=== PATIENT | female | born 1985 | race Caucasian/White ===

== ENCOUNTER 2017-05-21 13:13 | Emergency (ER) | payer OTHER ==
[2017-05-21] MEDS ORDERED: NORMAL SALINE 1000 ML 1,000 ML IV ONE (13:50)
[2017-05-21] MEDS ORDERED: ONDANSETRON 4 MG TAB.RAPDIS PO ONE (13:50)
--- NOTE | 2017-05-21 13:52 | ER Document Report ---
ED Medical Screen (RME) - General Chief Complaint: Nausea/Vomiting/Diarrhea Stated Complaint: FLU LIKE SYMPTOMS Time Seen by Provider: 05/21/17 13:47 Notes: 31-year-old female patient is about 18 weeks . Came here from [place] 5 days ago. This morning developed sinus congestion with sore throat, shortly after that developed nausea vomiting diarrhea with left abdomen cramping. She states she hurts everywhere including her teeth to her toes. I have greeted and performed a rapid initial assessment of this patient. A comprehensive ED assessment and evaluation of the patient, analysis of test results and completion of the medical decision making process will be conducted by additional ED providers. - Related Data Allergies/Adverse Reactions: No Known Allergies Allergy (Verified 05/21/17 13:43) Past Medical History - Social History Chew tobacco use (# tins/day): No Frequency of alcohol use: None Drug Abuse: None Renal/ Medical History: Denies: Hx Peritoneal Dialysis Physical Exam - Vital signs Vitals: Temp Pulse Resp BP Pulse Ox 97.2 F 82 22 H 127/76 H 99 05/21/17 13:26 05/21/17 13:26 05/21/17 13:26 05/21/17 13:26 05/21/17 13:26 Course - Vital Signs Vital signs: Temp Pulse Resp BP Pulse Ox 97.2 F 82 22 H 127/76 H 99 05/21/17 13:26 05/21/17 13:26 05/21/17 13:26 05/21/17 13:26 05/21/17 13:26
[2017-05-21] MEDS ORDERED: METOCLOPRAMIDE HCL INJ/PF 10 MG/2 ML SDV IV ONE (14:21)
[2017-05-21 14:36] LABS: HEMATOCRIT 40.2 % (36.0-47.0); HEMOGLOBIN 14.1 g/dL (12.0-15.5); MEAN CORPUSCULAR HEMOGLOBIN 31.2 pg (27.0-33.4); MEAN CORPUSCULAR VOLUME 89 fl (80-97); PLATELET COUNT 212 10^3/uL (150-450); RED BLOOD COUNT 4.51 10^6/uL (3.72-5.28); RED CELL DISTRIBUTION WIDTH 13.2 % (11.5-14.0); WHITE BLOOD COUNT 12.5 10^3/uL (4.0-10.5)
[2017-05-21 14:40] LABS: ABSOLUTE LYMPHOCYTES# (MANUAL) 0.8 10^3/uL (0.5-4.7); ABSOLUTE MONOCYTES # (MANUAL) 0.3 10^3/uL (0.1-1.4); ABSOLUTE NEUTROPHILS# (MANUAL) 11.5 10^3/uL (1.7-8.2); BASOPHILS % (MANUAL) 0 % (0-2); EOSINOPHILS % (MANUAL) 0 % (0-6); LYMPHOCYTES % (MANUAL) 4 % (13-45); MONOCYTES % (MANUAL) 2 % (3-13); SEGMENTED NEUTROPHILS % (MAN) 92 % (42-78); TOTAL CELLS COUNTED 100
[2017-05-21 14:41] LABS: POLYCHROMASIA SLIGHT
[2017-05-21 14:42] LABS: PLATELET COMMENT ADEQUATE
[2017-05-21 14:46] LABS: ALANINE AMINOTRANSFERASE 26 U/L (9-52); ALKALINE PHOSPHATASE 56 U/L (38-126); ANION GAP 8 (5-19); ASPARTATE AMINO TRANSFERASE 19 U/L (14-36); BILIRUBIN,DIRECT 0.2 mg/dL (0.0-0.4); BILIRUBIN,TOTAL 0.8 mg/dL (0.2-1.3); BLOOD UREA NITROGEN 9 mg/dL (7-20); CALCIUM 9.6 mg/dL (8.4-10.2); CARBON DIOXIDE 24 mmol/L (22-30); CHLORIDE 104 mmol/L (98-107); GLUCOSE 103 mg/dL (75-110); POTASSIUM 3.7 mmol/L (3.6-5.0); SODIUM 136.4 mmol/L (137-145); TOTAL PROTEIN 6.3 g/dL (6.3-8.2)
[2017-05-21] MEDS ORDERED: DEXTROSE 5%-LACTATED RINGERS 1,000 ML IV ONE ×2 (14:48→15:47)
[2017-05-21 15:45] LABS: APPEARANCE,URINE CLEAR; BILIRUBIN,URINE NEGATIVE (NEGATIVE); COLOR,URINE YELLOW; GLUCOSE, URINE NEGATIVE (NEGATIVE); KETONES,URINE 300 mg/dL (NEGATIVE); PROTEIN,URINE NEGATIVE (NEGATIVE); URINE SPECIFIC GRAVITY 1.026
[2017-05-21 15:46] LABS: LEUKOCYTE ESTERASE,URINE NEGATIVE (NEGATIVE); NITRITE,URINE NEGATIVE (NEGATIVE); UROBILINOGEN,URINE NEGATIVE mg/dL (<2.0)
--- NOTE | 2017-05-21 16:25 | ER Document Report ---
ED GI/ - General Chief Complaint: Nausea/Vomiting/Diarrhea Stated Complaint: FLU LIKE SYMPTOMS Time Seen by Provider: 05/21/17 13:47 Mode of Arrival: Ambulatory Information source: Patient Notes: This 31-year-old female patient who is about 18 weeks and came here from [place] 5 days ago. She reports this morning she developed sinus congestion with sore throat, shortly after that developed nausea, vomiting, diarrhea with left abdominal cramping. She states she hurt everywhere including her teeth down to her toes. She is quite nauseous and actively dry heaving. - Related Data Allergies/Adverse Reactions: No Known Allergies Allergy (Verified 05/21/17 13:43) Past Medical History - General Information source: Patient - Social History Smoking Status: Never Smoker Cigarette use (# per day): No Chew tobacco use (# tins/day): No Smoking Education Provided: No Frequency of alcohol use: None Drug Abuse: None Lives with: Family Family History: Reviewed & Not Pertinent Patient has suicidal ideation: No Patient has homicidal ideation: No - Medical History Medical History: Negative Past Surgical History: Reports: Hx Section, Hx Thyroid Surgery - Right thyroidectomy, Other - 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 Review of Systems - Review of Systems Constitutional: No symptoms reported EENT: No symptoms reported Cardiovascular: No symptoms reported Respiratory: No symptoms reported Gastrointestinal: See HPI Genitourinary: No symptoms reported Female Genitourinary: See HPI Musculoskeletal: No symptoms reported Skin: No symptoms reported Hematologic/Lymphatic: No symptoms reported Neurological/Psychological: No symptoms reported Physical Exam - Vital signs Vitals: Temp Pulse Resp BP Pulse Ox 97.2 F 82 22 H 127/76 H 99 05/21/17 13:26 05/21/17 13:26 05/21/17 13:26 05/21/17 13:26 05/21/17 13:26 Interpretation: Normal - General General appearance: Alert, Anxious In distress: Moderate - Quite nauseous and actively dry heaving, severe cramps in her left lower abdomen - HEENT Head: Normocephalic, Atraumatic Eyes: Normal Pupils: PERRL - Respiratory Respiratory status: No respiratory distress Chest status: Nontender Breath sounds: Normal Chest palpation: Normal - Cardiovascular Rhythm: Regular Heart sounds: Normal auscultation Murmur: No - Abdominal Inspection: Gravid female Bowel sounds: Normal Tenderness: Tender - Some tenderness in the left abdomen - Back Back: Normal - Extremities General upper extremity: Normal inspection General lower extremity: Normal inspection - Neurological Neuro grossly intact: Yes - Psychological Associated symptoms: Normal affect, Normal mood - Skin Skin Temperature: Warm Skin Moisture: Dry Skin Color: Normal Course - Re-evaluation Re-evalutation: 05/21/17 16:37 After 2 L of IV fluids, and 10 mg of Reglan IV, the patient's nausea completely subsided and the abdominal cramps subsided. She feels much better at this time. She she was given 1/3 L of IV fluids prior to discharge. - Vital Signs Vital signs: Temp Pulse Resp BP Pulse Ox 97.2 F 82 22 H 127/76 H 99 05/21/17 13:26 05/21/17 13:26 05/21/17 13:26 05/21/17 13:26 05/21/17 13:26 - Laboratory Result Diagrams: 05/21/17 14:00 05/21/17 14:00 Laboratory results interpreted by me: 05/21/17 05/21/17 05/21/17 14:00 14:00 15:00 WBC 12.5 H Seg Neuts % (Manual) 92 H Lymphocytes % (Manual) 4 L Monocytes % (Manual) 2 L Abs Neuts (Manual) 11.5 H Sodium 136.4 L Creatinine 0.48 L Urine Ketones 300 H Urine Blood SMALL H Discharge - Discharge Clinical Impression: Viral syndrome, Nausea, vomiting and diarrhea, Pelvic cramping in antepartum period, 18 weeks gestation of , Dehydration Condition: Stable Disposition: HOME, SELF-CARE Additional Instructions: Viral Syndrome The physician has diagnosed a viral infection. Viruses not only cause "colds," but can cause many different symptoms including generalized aching, fever, headache, cough, diarrhea, nausea, vomiting, and fatigue. The treatment, for the most part, is simply relief of symptoms. This means that antibiotics are usually not given. Rest, fluids, pain medications and, occasionally, medication for the specific symptoms that are most bothersome will be prescribed. Use good handwashing to avoid passing the virus to others. Shared toys should be cleaned with disinfectant. Clean the toilets, sinks, and counter surfaces in bathrooms. Launder clothing in hot water. Contact the physician if you develop any new or unusual symptoms such as severe headache, stiff neck, high fever, chest pain, productive cough, or shortness of breath. You should be rechecked if you don't see marked improvement within seven to 10 days. Take the Reglan as prescribed for nausea if needed. Take Tylenol for pain and fever as needed. Drink cool clear liquids as tolerated. Get plenty of rest and sleep. Follow-up with [facility] if not improving. RETURN TO THE EMERGENCY ROOM IF ANY NEW OR WORSENING SYMPTOMS. Prescriptions: Metoclopramide HCl [Reglan 10 mg Tablet] 1 tab PO ASDIR PRN #15 tablet PRN Reason: Referrals: [facility] [Provider Group] - Follow up as needed
[2017-05-21 16:46] VITALS: BP 132/85
== END 2017-05-21 16:47 | disposition home or self-care (01) ==
LOC: ER 13:13
DX: O21.8 Other vomiting complicating pregnancy (principal); B34.9 Viral infection, unspecified; R19.7 Diarrhea, unspecified; O26.92 Pregnancy related conditions, unspecified, second trimester; R10.2 Pelvic and perineal pain; E86.0 Dehydration; Z3A.18 18 weeks gestation of pregnancy
CPT/HCPCS: 99284; 96361; 96374; 36415; 85025; 80053; 81001; S0119; J2765; J7030